=== PATIENT | female | born 1990 | race Caucasian/White ===

== ENCOUNTER 2017-05-22 21:36 | Emergency (ER) | payer MEDICAID ==
--- NOTE | 2017-05-22 22:07 | EDM.PDOC ---
ED HPI GENERAL MEDICAL PROBLEM - General Chief Complaint: ENT Problem Stated Complaint: PT HAS EAR INFECTION Time Seen by Provider: 05/22/17 22:04 - History of Present Illness INITIAL COMMENTS - FREE TEXT/NARRATIVE: HISTORY AND PHYSICAL: History of present illness: Patient is 27-year-old female presents with concern of right ear pain patient is currently and has no other complaints with no fever chills nausea vomiting is worse when she moves her pinna. Review of systems: As per history of present illness and below otherwise all systems reviewed and negative. Past medical history: As per history of present illness and as reviewed below otherwise noncontributory. Surgical history: As per history of present illness and as reviewed below otherwise noncontributory. Social history: No reported history of drug or alcohol abuse. Family history: As per history of present illness and as reviewed below otherwise noncontributory. Physical exam: HEENT: Atraumatic, normocephalic, pupils reactive, negative for conjunctival pallor or scleral icterus, mucous membranes moist, throat clear, neck supple, nontender, trachea midline. Right external auditory canal is inflamed with some erythema there is tenderness with movement there is no radha-auricular or other significant findings TM is normal Lungs: Clear to auscultation, breath sounds equal bilaterally, chest nontender. Heart: S1S2, regular, negative for clicks, rubs, or JVD. Abdomen: Soft, nondistended, nontender. Negative for masses or hepatosplenomegaly. Negative for costovertebral tenderness. Pelvis: Stable nontender. Genitourinary: Deferred. Rectal: Deferred. Extremities: Atraumatic, negative for cords or calf pain. Neurovascular unremarkable. Neuro: Awake, alert, oriented. Cranial nerves II through XII unremarkable. Cerebellum unremarkable. Motor and sensory unremarkable throughout. Exam nonfocal. Diagnostics: None Therapeutics: None Impression: #1 otitis externa #2 history of Definitive disposition and diagnosis as appropriate pending reevaluation and review of above. Right Ear Pain Score (Numeric/FACES): 6 - Related Data Allergies Allergy/AdvReac Type Severity Reaction Status Date / Time No Known Allergies Allergy Verified 05/22/17 21:47 Home Meds: Home Meds . [No Known Home Meds] 05/22/17 [History] Past Medical History - Past Health History Medical/Surgical History: Denies Medical/Surgical History Social & Family History - Family History Family Medical History: Noncontributory - Tobacco Use Smoking Status *Q: Never Smoker - Caffeine Use Caffeine Use: Reports: Energy Drinks, Soda - Recreational Drug Use Recreational Drug Use: No ED ROS GENERAL - Review of Systems Review Of Systems: ROS reveals no pertinent complaints other than HPI. ED EXAM, GENERAL - Physical Exam Exam: See Below (See dictation) Course - Vital Signs Last Recorded V/S: Last Vital Signs Temp 37.3 C 05/22/17 21:44 Pulse 88 05/22/17 21:44 Resp 18 05/22/17 21:44 BP 119/63 05/22/17 21:44 Pulse Ox 99 05/22/17 21:44 Departure - Departure Time of Disposition: 22:06 Disposition: Home, Self-Care 01 Condition: Good Clinical Impression: Otitis externa - Discharge Information Referrals: PCP,None [Primary Care Provider] - Additional Instructions: The following information is given to patients seen in the emergency department who are being discharged to home. This information is to outline your options for follow-up care. We provide all patients seen in our emergency department with a follow-up referral. The need for follow-up, as well as the timing and circumstances, are variable depending upon the specifics of your emergency department visit. If you don't have a primary care physician on staff, we will provide you with a referral. We always advise you to contact your personal physician following an emergency department visit to inform them of the circumstance of the visit and for follow-up with them and/or the need for any referrals to a consulting specialist. The emergency department will also refer you to a specialist when appropriate. This referral assures that you have the opportunity for followup care with a specialist. All of these measure are taken in an effort to provide you with optimal care, which includes your followup. Under all circumstances we always encourage you to contact your private physician who remains a resource for coordinating your care. When calling for followup care, please make the office aware that this follow-up is from your recent emergency room visit. If for any reason you are refused follow-up, please contact the emergency department at and asked to speak to the emergency department charge nurse. Cortisporin as prescribed follow-up primary medical doctor/JAVA APPLICATION ENGINEER he has discussed return as needed as discussed Tylenol as directed
== END 2017-05-22 22:45 | disposition home or self-care (01) ==
LOC: MW.ED 21:36
DX: O99.89 Other specified diseases and conditions complicating pregnancy, childbirth and the puerperium (principal); H60.91 Unspecified otitis externa, right ear
CPT/HCPCS: 99282

== ENCOUNTER 2017-06-13 18:28 | Emergency (ER) | payer MEDICAID ==
--- NOTE | 2017-06-13 19:51 | EDM.PDOC ---
ED HPI GENERAL MEDICAL PROBLEM - General Chief Complaint: ENT Problem Stated Complaint: DOUBLE EAR ACHE Time Seen by Provider: 06/13/17 19:35 Source of Information: Reports: Patient History Limitations: Reports: No Limitations - History of Present Illness INITIAL COMMENTS - FREE TEXT/NARRATIVE: HISTORY AND PHYSICAL: History of present illness: Patient is a 27-year-old female who presents to the emergency room today with complaints of bilateral ear pain 2-1/2 weeks. She states she was seen a week ago and given some external ear drops, although she is not sure what for. She is unsure if she was diagnosed with an ear infection at that time. She is currently 32 weeks and has had no OB related complications at this time. States that she routinely sees her GIS PHYSICAL SCIENTIST. She denies any fever, chills, shortness of breath, cough, chest pain. Review of systems: As per history of present illness and below otherwise all systems reviewed and negative. Past medical history: As per history of present illness and as reviewed below otherwise noncontributory. Surgical history: As per history of present illness and as reviewed below otherwise noncontributory. Social history: No reported history of drug or alcohol abuse. Family history: As per history of present illness and as reviewed below otherwise noncontributory. Physical exam: HEENT: Atraumatic, normocephalic, pupils reactive, negative for conjunctival pallor or scleral icterus, bilateral otitis media with effusion mucous membranes moist, throat clear, neck supple, nontender, trachea midline. Lungs: Clear to auscultation, breath sounds equal bilaterally, chest nontender. Heart: S1S2, regular rate and rhythm with no overt murmurs Abdomen: Soft, nondistended, nontender. Currently 32 weeks . Negative for masses or hepatosplenomegaly. Negative for costovertebral tenderness. Pelvis: Stable nontender. Genitourinary: Deferred. Rectal: Deferred. Extremities: Atraumatic, solid extremities per self, negative for cords or calf pain. Neurovascular unremarkable. Neuro: Awake, alert, oriented. Cranial nerves II through XII unremarkable. Cerebellum unremarkable. Motor and sensory unremarkable throughout. Exam nonfocal. Diagnostics: None Therapeutics: [] Impression: Bilateral otitis media with effusion Plan: Please take antibiotics as prescribed. Inform your GIS PHYSICAL SCIENTIST they were on this medication and that you have been diagnosed with an otitis media with effusion. Follow up with your primary caregiver in the next 1-2 days. Return to the ED as needed and as discussed. Definitive disposition and diagnosis as appropriate pending reevaluation and review of above. Duration: Week(s): both ears Pain Score (Numeric/FACES): 8 - Related Data Allergies Allergy/AdvReac Type Severity Reaction Status Date / Time No Known Allergies Allergy Verified 06/13/17 18:55 Home Meds: Home Meds #103/Iron Fumarate/Fa [ ] 1 tab PO DAILY 06/13/17 [ History] Past Medical History - Past Health History Medical/Surgical History: Denies Medical/Surgical History - Past Surgical History HEENT Surgical History: Reports: Tonsillectomy Social & Family History - Family History Family Medical History: Noncontributory - Tobacco Use Smoking Status *Q: Never Smoker - Caffeine Use Caffeine Use: Reports: None - Recreational Drug Use Recreational Drug Use: No ED ROS ENT - Review of Systems Review Of Systems: ROS reveals no pertinent complaints other than HPI. ED EXAM, ENT - Physical Exam Exam: See Below (See dictation) Course - Vital Signs Last Recorded V/S: Last Vital Signs Temp 98.5 F 06/13/17 18:55 Pulse 87 06/13/17 18:55 Resp 18 06/13/17 18:55 BP 113/76 06/13/17 18:55 Pulse Ox 99 06/13/17 18:55 Departure - Departure Time of Disposition: 19:51 Disposition: Home, Self-Care 01 Clinical Impression: Otitis media Qualifiers: Otitis media type: unspecified Chronicity: subacute Qualified Code(s): H66.90 - Otitis media, unspecified, unspecified ear - Discharge Information Referrals: PCP,None [Primary Care Provider] - Additional Instructions: My general discharge The following information is given to patients seen in the emergency department who are being discharged to home. This information is to outline your options for follow-up care. We provide all patients seen in our emergency department with a follow-up referral. The need for follow-up, as well as the timing and circumstances, are variable depending upon the specifics of your emergency department visit. If you don't have a primary care physician on staff, we will provide you with a referral. We always advise you to contact your personal physician following an emergency department visit to inform them of the circumstance of the visit and for follow-up with them and/or the need for any referrals to a consulting specialist. The emergency department will also refer you to a specialist when appropriate. This referral assures that you have the opportunity for follow-up care with a specialist. All of these measure are taken in an effort to provide you with optimal care, which includes your follow-up. Under all circumstances we always encourage you to contact your private physician who remains a resource for coordinating your care. When calling for follow-up care, please make the office aware that this follow-up is from your recent emergency room visit. If for any reason you are refused follow-up, please contact the [facility] Emergency Department at and asked to speak to the emergency department charge nurse. [facility] [address] [place] [id number] Please take antibiotics as prescribed. Inform your GIS PHYSICAL SCIENTIST they were on this medication and that you have been diagnosed with an otitis media with effusion. Follow up with your primary caregiver in the next 1-2 days. Return to the ED as needed and as discussed.
== END 2017-06-13 20:10 | disposition home or self-care (01) ==
LOC: MW.ED 18:28
DX: O99.89 Other specified diseases and conditions complicating pregnancy, childbirth and the puerperium (principal); H65.193 Other acute nonsuppurative otitis media, bilateral; Z3A.35 35 weeks gestation of pregnancy
CPT/HCPCS: 99282; 99283

== ENCOUNTER 2017-07-03 21:31 | Emergency (ER) | payer MEDICAID ==
[2017-07-03] MEDS ORDERED: Amoxicillin 500 MG Cap PO ONE (22:48)
[2017-07-03] MEDS ORDERED: Loratadine 10 MG Tab PO ONE (22:48)
--- NOTE | 2017-07-03 22:52 | EDM.PDOC ---
ED HPI GENERAL MEDICAL PROBLEM - General Chief Complaint: ENT Problem Stated Complaint: PAIN ON R SIDE OF FACE Time Seen by Provider: 07/03/17 22:50 Source of Information: Reports: Patient History Limitations: Reports: No Limitations - History of Present Illness INITIAL COMMENTS - FREE TEXT/NARRATIVE: History of present illness: [] Review of systems: As per history of present illness and below otherwise all systems reviewed and negative. Past medical history: As per history of present illness and as reviewed below otherwise noncontributory. Surgical history: As per history of present illness and as reviewed below otherwise noncontributory. Social history: No reported history of drug or alcohol abuse. Family history: As per history of present illness and as reviewed below otherwise noncontributory. Physical exam: HEENT: Atraumatic, normocephalic, pupils reactive, negative for conjunctival pallor or scleral icterus, mucous membranes moist mild oropharyngeal erythema without white patchy exudate otherwise throat is clear, neck supple, nontender, trachea midline. Bilateral TMs noted to be bulging but are pink pearly with good light reflex. Frontal and maxillary sinuses painful to palpation Lungs: Clear to auscultation, breath sounds equal bilaterally, chest nontender. Heart: S1S2, regular, negative for clicks, rubs, or JVD. Abdomen: Soft, nondistended, nontender. Negative for masses or hepatosplenomegaly. Negative for costovertebral tenderness. Pelvis: Stable nontender. Genitourinary: Deferred. Rectal: Deferred. Extremities: Atraumatic, negative for cords or calf pain. Neurovascular unremarkable. Neuro: Awake, alert, oriented. Cranial nerves II through XII unremarkable. Cerebellum unremarkable. Motor and sensory unremarkable throughout. Exam nonfocal. Diagnostics: [] Therapeutics: [] Impression: [Sinusitis] Plan: [Amoxicillin loratadine Rx for amoxicillin] Definitive disposition and diagnosis as appropriate pending reevaluation and review of above. right jaw Pain Score (Numeric/FACES): 9 - Related Data Allergies Allergy/AdvReac Type Severity Reaction Status Date / Time No Known Allergies Allergy Verified 07/03/17 22:47 Home Meds: Home Meds #103/Iron Fumarate/Fa [ ] 1 tab PO DAILY 06/13/17 [ History] Amoxicillin [IMW: Amoxicillin] 500 mg PO QID #40 cap 01/02/18 [Rx] Past Medical History - Past Health History Medical/Surgical History: Denies Medical/Surgical History HEENT History: Reports: None Cardiovascular History: Reports: None Respiratory History: Reports: None Gastrointestinal History: Reports: None Genitourinary History: Reports: None 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: Musculoskeletal History: Reports: None Neurological History: Reports: None Psychiatric History: Reports: None Endocrine/Metabolic History: Reports: None Hematologic History: Reports: None Immunologic History: Reports: None Oncologic (Cancer) History: Reports: None Dermatologic History: Reports: None - Infectious Disease History Infectious Disease History: Reports: None - Past Surgical History Head Surgeries/Procedures: Reports: None HEENT Surgical History: Reports: Tonsillectomy GI Surgical History: Reports: None Social & Family History - Family History Family Medical History: Noncontributory - Tobacco Use Smoking Status *Q: Never Smoker - Caffeine Use Caffeine Use: Reports: Energy Drinks, Soda - Recreational Drug Use Recreational Drug Use: No ED ROS GENERAL - Review of Systems Review Of Systems: See Below (See history of present illness) ED EXAM, GENERAL - Physical Exam Exam: See Below (See history of present illness) Course - Vital Signs Last Recorded V/S: Last Vital Signs Temp 37.1 C 07/03/17 22:48 Pulse 77 07/03/17 22:48 Resp 18 07/03/17 22:48 BP 119/77 07/03/17 22:48 Pulse Ox 98 07/03/17 22:48 - Orders/Labs/Meds Meds: Medications Discontinued Medications Generic Name Dose Route Start Last Admin Trade Name Sagarq PRN Reason Stop Dose Admin Amoxicillin 500 mg 07/03/17 22:48 Amoxil PO 07/03/17 22:49 ONETIME ONE Loratadine 10 mg 07/03/17 22:48 Claritin PO 07/03/17 22:49 ONETIME ONE Departure - Departure Time of Disposition: 22:51 Disposition: Home, Self-Care 01 Condition: Good Clinical Impression: Sinusitis - Discharge Information Prescriptions: Amoxicillin [IMW: Amoxicillin] 500 mg PO QID #40 cap Referrals: Geraldine Hernandez CNM [Primary Care Provider] - Additional Instructions: The following information is given to patients seen in the emergency department who are being discharged to home. This information is to outline your options for follow-up care. We provide all patients seen in our emergency department with a follow-up referral. The need for follow-up, as well as the timing and circumstances, are variable depending upon the specifics of your emergency department visit. If you don't have a primary care physician on staff, we will provide you with a referral. We always advise you to contact your personal physician following an emergency department visit to inform them of the circumstance of the visit and for follow-up with them and/or the need for any referrals to a consulting specialist. The emergency department will also refer you to a specialist when appropriate. This referral assures that you have the opportunity for follow-up care with a specialist. All of these measure are taken in an effort to provide you with optimal care, which includes your follow-up. Under all circumstances we always encourage you to contact your private physician who remains a resource for coordinating your care. When calling for follow-up care, please make the office aware that this follow-up is from your recent emergency room visit. If for any reason you are refused follow-up, please contact the [facility] Emergency Department at and asked to speak to the emergency department charge nurse. You may take Tylenol as discussed or other [id number] pain remedies that your OB has said you may have You're being given Claritin here today as well as an initial dose of amoxicillin also prescription for amoxicillin has been sent and the pharmacy for your sinusitis Please follow-up with your LOAD CHECKER and discuss further allergy and/or sinus medication error K with you having loratadine is okay for brief periods of time it is up to you to discuss any long-term plan with this medication Follow-up with ER as needed as discussed
== END 2017-07-03 23:01 | disposition home or self-care (01) ==
LOC: MW.ED 21:31
DX: O99.513 Diseases of the respiratory system complicating pregnancy, third trimester (principal); J32.9 Chronic sinusitis, unspecified; Z3A.00 Weeks of gestation of pregnancy not specified
CPT/HCPCS: 99282; A9270

== ENCOUNTER 2017-07-15 06:39 | Inpatient (IN) | payer MEDICAID ==
[2017-07-15] MEDS ORDERED: Sodium Chloride 0.9% 2.5 ML Syringe FLUSH PRN (21:49)
[2017-07-15] MEDS ORDERED: Misoprostol 200 MCG Tab PO PRN (21:49)
[2017-07-15] MEDS ORDERED: Carboprost Tromethamine 250 MCG/1 ML Amp IM PRN (21:49)
[2017-07-15] MEDS ORDERED: Lidocaine 1% 50 ML MDV INJECT PRN (21:49)
[2017-07-15] MEDS ORDERED: Butorphanol 1 MG/ML SDV IVPUSH PRN (21:49)
[2017-07-15] MEDS ORDERED: Methylergonovine 0.2 MG/1 ML Amp IM PRN (21:49)
[2017-07-15] MEDS ORDERED: Sodium Chloride 0.9% 10 ML Syringe FLUSH PRN (21:49)
[2017-07-15] MEDS ORDERED: Water For Irrigation,Sterile 1,000 ML Container IRR PRN (21:49)
[2017-07-15] MEDS ORDERED: Nalbuphine 10 MG/1 ML Vial IVPUSH PRN (21:49)
[2017-07-15] MEDS ORDERED: Oxytocin/0.9 % Sodium Chloride 30 UNIT/500 ML BAG IV SCH (22:00)
[2017-07-15] MEDS: Lactated Ringers 1,000 ML IV SCH ×3 (22:10→23:39)
--- NOTE | 2017-07-15 22:28 | PCM.LDHP ---
L&D History of Present Illness - General Date of Service: 07/15/17 Admit Problem/Dx: Patient Status Order with Admit Dx/Problem 07/15/17 21:49 Patient Status [ADT] Routine Admission Diagnosis/Problem Admission Diagnosis/Problem Source of Information: Patient History Limitations: Reports: No Limitations - History of Present Illness Pain Score: 10 Improves with: Reports: None Worsens with: Reports: None Associated Symptoms: Reports: N - Related Data Allergies/Adverse Reactions: Allergies Allergy/AdvReac Type Severity Reaction Status Date / Time No Known Allergies Allergy Verified 07/03/17 22:47 Home Medications: Home Meds #103/Iron Fumarate/Fa [ ] 1 tab PO DAILY 06/13/17 [ History] Amoxicillin [IMW: Amoxicillin] 500 mg PO QID #40 cap 07/03/17 [Rx] Past Medical History - Past Health History Medical/Surgical History: Denies Medical/Surgical History HEENT History: Reports: None Cardiovascular History: Reports: None Respiratory History: Reports: None Gastrointestinal History: Reports: None Genitourinary History: Reports: None RN 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: 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: Musculoskeletal History: Reports: None Neurological History: Reports: None Psychiatric History: Reports: None Endocrine/Metabolic History: Reports: None Hematologic History: Reports: None Immunologic History: Reports: None Oncologic (Cancer) History: Reports: None Dermatologic History: Reports: None - Infectious Disease History Infectious Disease History: Reports: None - Past Surgical History Head Surgeries/Procedures: Reports: None HEENT Surgical History: Reports: Tonsillectomy GI Surgical History: Reports: None Social & Family History - Family History Family Medical History: Noncontributory - Tobacco Use Smoking Status *Q: Never Smoker - Caffeine Use Caffeine Use: Reports: Energy Drinks, Soda - Recreational Drug Use Recreational Drug Use: No H&P Review of Systems - Review of Systems: Review Of Systems: See Below General: Reports: No Symptoms HEENT: Reports: No Symptoms Pulmonary: Reports: No Symptoms Cardiovascular: Reports: No Symptoms Gastrointestinal: Reports: No Symptoms Genitourinary: Reports: No Symptoms Musculoskeletal: Reports: No Symptoms Skin: Reports: No Symptoms Psychiatric: Reports: No Symptoms Neurological: Reports: No Symptoms Hematologic/Lymphatic: Reports: No Symptoms Immunologic: Reports: No Symptoms L&D Exam - Exam Exam: See Below - OB Specific Fundal Height In cm: 37 Contraction Intensity: Moderate to Strong Movement: Active Heart Tones: Present Presentation: Vertex - Loco Score Loco Score Cervix Position: Anterior Loco Score Consistency: Soft Loco Score Effacement: >80% Loco Score Dilation: 3-4 cm Loco Score 's Station: -2 Loco Score Total: 10 - Exam General: Alert, Oriented HEENT: PERRLA, Conjunctiva Clear, EACs Clear, EOMI, Hearing Intact, Mucosa Moist & [place], Nares Patent, Normal Nasal Septum, Posterior Pharynx Clear, TMs Clear Neck: Supple, Trachea Midline Lungs: Clear to Auscultation, Normal Respiratory Effort Cardiovascular: Regular Rate, Regular Rhythm GI/Abdominal Exam: Normal Bowel Sounds, Soft, Non-Tender, No Organomegaly, No Distention, No Abnormal Bruit, No Mass, Pelvis Stable Rectal Exam: Normal Exam, Normal Rectal Tone Genitourinary: Normal external exam, Normal bimanual exam, Normal speculum exam Back Exam: Normal Inspection, Full Range of Motion Extremities: Normal Inspection, Normal Range of Motion, Non-Tender, No Pedal Edema, Normal Capillary Refill Skin: Warm, Dry, Intact Neurological: Cranial Nerves Intact, Reflexes Equal Bilateral Psychiatric: Alert, Normal Affect, Normal Mood - Patient Data Lab Results Last 24 hrs: Laboratory Results - last 24 hr 07/15/17 Range/Units 22:05 WBC 12.38 H (4.0-11.0) K/uL RBC 3.47 L (4.30-5.90) M/uL Hgb 10.2 L (12.0-16.0) g/dL Hct 29.9 L (36.0-46.0) % MCV 86.2 (80.0-98.0) fL MCH 29.4 (27.0-32.0) pg MCHC 34.1 (31.0-37.0) g/dL RDW Std Deviation 42.5 (28.0-62.0) fl RDW Coeff of Himanshu 14 (11.0-15.0) % Plt Count 206 (150-400) K/uL MPV 13.00 H (7.40-12.00) fL Nucleated RBC % 0.0 /100WBC Nucleated RBCs # 0 K/uL Result Diagrams: 07/15/17 22:05 Problem List Initiated/Reviewed/Updated: Yes Orders Last 24hrs: Active Orders 24 hr Category Date Time Status Patient Status [ADT] Routine ADT 07/15/17 21:49 Active Heart Tones [RC] CONTINUOUS Care 07/15/17 21:49 Active Non Stress Test [RC] PER UNIT ROUTINE Care 07/15/17 21:49 Active May Shower [RC] ASDIRECTED Care 07/15/17 21:49 Active Notify Provider [RC] PRN Care 07/15/17 21:49 Active Up ad Rosy [RC] ASDIRECTED Care 07/15/17 21:49 Active Vaginal Exam [RC] PRN Care 07/15/17 21:49 Active Vital Signs [RC] PER UNIT ROUTINE Care 07/15/17 21:49 Active Clear Liquid Diet [DIET] Diet 07/16/17 Breakfast Active TYPE AND SCREEN [BBK] Routine Lab 07/15/17 22:05 Received Butorphanol [Stadol] Med 07/15/17 21:49 Active 1 mg IVPUSH Q1H PRN Carboprost Tromethamine [Hemabate DS] Med 07/15/17 21:49 Active 250 mcg IM ASDIRECTED PRN Lactated Ringers [Ringers, Lactated] 1,000 ml Med 07/15/17 22:00 Active IV ASDIRECTED Lidocaine 1% [Xylocaine 1%] Med 07/15/17 21:49 Active 50 ml INJECT .ONCE PRN Methylergonovine [Methergine] Med 07/15/17 21:49 Active 0.2 mg IM ASDIRECTED PRN Misoprostol [Cytotec] Med 07/15/17 21:49 Active 200 mcg PO .ONCE PRN Nalbuphine [Nubain] Med 07/15/17 21:49 Active 10 mg IVPUSH Q1H PRN Oxytocin/0.9 % Sodium Chloride [Oxytocin 30 Unit/500 ML Med 07/15/17 22:00 Active -NS] 30 unit in 500 ml IV TITRATE Sodium Chloride 0.9% [Saline Flush] Med 07/15/17 21:49 Active 10 ml FLUSH ASDIRECTED PRN Sodium Chloride 0.9% [Saline Flush] Med 07/15/17 21:49 Active 2.5 ml FLUSH ASDIRECTED PRN Water For Irrigation,Sterile [Sterile Water for Med 07/15/17 21:49 Active Irrigation] 1,000 ml IRR ASDIRECTED PRN Scalp Electrode [WOMSER] Per Unit Routine Oth 07/15/17 21:49 Ordered Peripheral IV Insertion Adult [OM.PC] Routine Oth 07/15/17 21:49 Ordered Resuscitation Status Routine Resus Stat 07/15/17 21:49 Ordered Medication Orders Butorphanol Tartrate (Stadol) 1 mg IVPUSH Q1H PRN PRN Reason: Pain Last Admin: 07/15/17 22:23 Dose: 1 mg Carboprost Tromethamine (Hemabate Ds) 250 mcg IM ASDIRECTED PRN PRN Reason: Post Hemorrhage Lactated Ringer's (Ringers, Lactated) 1,000 mls @ 150 mls/hr IV ASDIRECTED YAMIL Oxytocin/Sodium Chloride (Oxytocin 30 Unit/500 Ml-Ns) 30 unit in 500 mls @ 999 mls/hr IV TITRATE YAMIL Lidocaine HCl (Xylocaine 1%) 50 ml INJECT .ONCE PRN PRN Reason: Laceration repair Methylergonovine Maleate (Methergine) 0.2 mg IM ASDIRECTED PRN PRN Reason: Post Hemorrhage Misoprostol (Cytotec) 200 mcg PO .ONCE PRN PRN Reason: Post Hemorrhage Nalbuphine HCl (Nubain) 10 mg IVPUSH Q1H PRN PRN Reason: Pain (severe 7-10) Sodium Chloride (Saline Flush) 10 ml FLUSH ASDIRECTED PRN PRN Reason: Keep Vein Open Sodium Chloride (Saline Flush) 2.5 ml FLUSH ASDIRECTED PRN PRN Reason: Keep Vein Open Sterile Water (Sterile Water For Irrigation) 1,000 ml IRR ASDIRECTED PRN PRN Reason: delivery Assessment/Plan Comment:: tremorgnancy in active labor. Plan admit she may have epidural.
[2017-07-15] MEDS ORDERED: Ropivacaine 100 ML ONE (22:41)
[2017-07-15] MEDS ORDERED: fentaNYL 100 MCG/2 ML SDV ONE (22:41)
--- NOTE | 2017-07-15 23:16 | PCM.PREANE ---
Preanesthetic Assessment - Anesthesia/Transfusion/Family Hx Anesthesia History: Prior Anesthesia Without Reaction Family History of Anesthesia Reaction: No - Review of Systems General: No Symptoms Pulmonary: No Symptoms Cardiovascular: No Symptoms Gastrointestinal: No Symptoms Neurological: No Symptoms Other: Reports: None - Physical Assessment NPO Status Date: 07/15/17 NPO Status Time: 17:00 Height: 5 ft 5 in Weight: 158 lb ASA Class: 1 Mental Status: Alert & Oriented x3 Airway Class: Mallampati = 2 Dentition: Reports: Missing Tooth/Teeth Thyro-Mental Finger Breadths: 3 Mouth Opening Finger Breadths: 3 ROM/Head Extension: Full Lungs: Clear to Auscultation, Normal Respiratory Effort - Lab Values: Laboratory Last Values WBC 12.38 K/uL (4.0-11.0) H 07/15/17 22:05 RBC 3.47 M/uL (4.30-5.90) L 07/15/17 22:05 Hgb 10.2 g/dL (12.0-16.0) L 07/15/17 22:05 Hct 29.9 % (36.0-46.0) L 07/15/17 22:05 MCV 86.2 fL (80.0-98.0) 07/15/17 22:05 MCH 29.4 pg (27.0-32.0) 07/15/17 22:05 MCHC 34.1 g/dL (31.0-37.0) 07/15/17 22:05 RDW Std Deviation 42.5 fl (28.0-62.0) 07/15/17 22:05 RDW Coeff of Himanshu 14 % (11.0-15.0) 07/15/17 22:05 Plt Count 206 K/uL (150-400) 07/15/17 22:05 MPV 13.00 fL (7.40-12.00) H 07/15/17 22:05 Nucleated RBC % 0.0 /100WBC 07/15/17 22:05 Nucleated RBCs # 0 K/uL 07/15/17 22:05 - Allergies Allergies/Adverse Reactions: Allergies Allergy/AdvReac Type Severity Reaction Status Date / Time No Known Allergies Allergy Verified 07/03/17 22:47 - Acknowledgements Anesthesia Type Planned: Epidural Pt an Appropriate Candidate for the Planned Anesthesia: Yes Alternatives and Risks of Anesthesia Discussed w Pt/Guardian: Yes Pt/Guardian Understands and Agrees with Anesthesia Plan: Yes Additional Comments: VSS and baby reassuring. I obtained informed consent. Patient cooperated very well. PreAnesthesia Questionnaire - Past Health History Medical/Surgical History: Denies Medical/Surgical History HEENT History: Reports: None Cardiovascular History: Reports: None Respiratory History: Reports: None Gastrointestinal History: Reports: None Genitourinary History: Reports: None FINISHED [employer] EXAM[employer]ER History: Reports: Musculoskeletal History: Reports: None Neurological History: Reports: None Psychiatric History: Reports: None Endocrine/Metabolic History: Reports: None Hematologic History: Reports: None Immunologic History: Reports: None Oncologic (Cancer) History: Reports: None Dermatologic History: Reports: None - Infectious Disease History Infectious Disease History: Reports: None - Past Surgical History Head Surgeries/Procedures: Reports: None HEENT Surgical History: Reports: Tonsillectomy GI Surgical History: Reports: None - SUBSTANCE USE Smoking Status *Q: Never Smoker Recreational Drug Use History: No - HOME MEDS Home Medications: Home Meds #103/Iron Fumarate/Fa [ ] 1 tab PO DAILY 06/13/17 [ History] Amoxicillin [IMW: Amoxicillin] 500 mg PO QID #40 cap 07/03/17 [Rx] - CURRENT (IN HOUSE) MEDS Current Meds: Current Medications Butorphanol Tartrate (Stadol) 1 mg IVPUSH Q1H PRN PRN Reason: Pain Last Admin: 07/15/17 22:23 Dose: 1 mg Carboprost Tromethamine (Hemabate Ds) 250 mcg IM ASDIRECTED PRN PRN Reason: Post Hemorrhage Lactated Ringer's (Ringers, Lactated) 1,000 mls @ 150 mls/hr IV ASDIRECTED YAMIL Last Admin: 07/15/17 22:46 Dose: 150 mls/hr Oxytocin/Sodium Chloride (Oxytocin 30 Unit/500 Ml-Ns) 30 unit in 500 mls @ 999 mls/hr IV TITRATE YAMIL Lidocaine HCl (Xylocaine 1%) 50 ml INJECT .ONCE PRN PRN Reason: Laceration repair Methylergonovine Maleate (Methergine) 0.2 mg IM ASDIRECTED PRN PRN Reason: Post Hemorrhage Misoprostol (Cytotec) 200 mcg PO .ONCE PRN PRN Reason: Post Hemorrhage Nalbuphine HCl (Nubain) 10 mg IVPUSH Q1H PRN PRN Reason: Pain (severe 7-10) Sodium Chloride (Saline Flush) 10 ml FLUSH ASDIRECTED PRN PRN Reason: Keep Vein Open Sodium Chloride (Saline Flush) 2.5 ml FLUSH ASDIRECTED PRN PRN Reason: Keep Vein Open Sterile Water (Sterile Water For Irrigation) 1,000 ml IRR ASDIRECTED PRN PRN Reason: delivery Discontinued Medications Fentanyl (Sublimaze) Confirm Administered Dose 100 mcg .ROUTE .STK-MED ONE Stop: 07/15/17 22:42 Ropivacaine (Naropin 0.2%) Confirm Administered Dose 100 mls @ as directed .ROUTE .STK-MED ONE Stop: 07/15/17 22:42
[2017-07-16] MEDS: Lactated Ringers 1,000 ML IV SCH (04:51)
[2017-07-16] MEDS ORDERED: oxyCODONE 5 MG Tab PO PRN (06:50)
[2017-07-16] MEDS ORDERED: Benzocaine/Menthol 20%-0.5% Spray 78 GM Cannister TOP PRN (06:50)
[2017-07-16] MEDS ORDERED: Docusate Sodium 100 MG Cap PO PRN (06:50)
[2017-07-16] MEDS ORDERED: Witch Hazel Medicated Pads 40/Jar TOP PRN (06:50)
[2017-07-16] MEDS ORDERED: Ibuprofen 400 MG Tab PO PRN (06:50)
[2017-07-16] MEDS ORDERED: Acetaminophen 500 MG Tab PO PRN ×2 (06:50)
[2017-07-16] MEDS ORDERED: Lanolin 100% Cream 7 GM Tube TOP PRN (06:50)
[2017-07-16] MEDS ORDERED: Bisacodyl 10 MG Supp RECTAL PRN (06:50)
[2017-07-16] MEDS: Ibuprofen 800 MG Tab PO PRN ×2 (09:25→19:42)
--- NOTE | 2017-07-16 10:16 | PCM48HPAN ---
Post Anesthesia Note - EVALUATION WITHIN 48HRS OF ANESTHETIC Vital Signs in Normal Range: Yes Patient Participated in Evaluation: Yes Respiratory Function Stable: Yes Airway Patent: Yes Cardiovascular Function Stable: Yes Hydration Status Stable: Yes Pain Control Satisfactory: Yes Nausea and Vomiting Control Satisfactory: Yes Mental Status Recovered: Yes
--- NOTE | 2017-07-16 13:46 | OR ---
SURGEON: Prem Turner MD DATE OF PROCEDURE: 07/16/2017 Ms. Richard is a 27-year-old patient. She is primigravida. She is followed in the clinic. She started late in her care in this . She has started at 32 weeks, and she is mainly followed by our nurse elderly caregiver. She has no complication. Her GBS test was negative. She is admitted in active labor. At the time of the admission, she was 4 cm, complete vertex, -3, with bulging bag of water. She had epidural anesthesia for labor analgesia. The patient progressed nicely without any problem. She had artificial rupture of the membranes, and it shows to be meconium stain. The patient continued to progress, she became complete, complete, and she accomplished normal spontaneous vaginal delivery of male fetus, cried immediately, and suctioned on the perineum, and after suctioning on the perineum, the baby cried immediately. There was a small midline laceration, and the placenta was delivered spontaneous, complete, and intact. The laceration was repaired with 3-0 Vicryl in layer without any problem. heart rate was category 1, except when the patient was complete and pushing, there was some variable deceleration and was category 2. Estimated blood loss is 250-300 mL in this . There was no complication. FABIAN / ARLETTE /[id number]
[2017-07-17] MEDS: Ibuprofen 800 MG Tab PO PRN ×2 (05:30→13:12)
[2017-07-17] MEDS ORDERED: Measles, Mumps & Rubella Vaccine 0.5 ML SDV SUBCUT ONE (09:02)
--- NOTE | 2017-07-17 10:47 | PCM.DCSUM1 ---
Discharge Summary - Discharge Data Discharge Date: 07/17/17 Discharge Disposition: Home, Self-Care 01 Condition: Good - Patient Instructions Diet: Usual Diet as Tolerated Activity: As Tolerated Driving: Do Not Drive Showering/Bathing: October Shower Notify Provider of: Fever, Increased Pain, Nausea and/or Vomiting - Discharge Plan Home Medications: Home Meds #103/Iron Fumarate/Fa [ ] 1 tab PO DAILY 06/13/17 [ History] Amoxicillin [IMW: Amoxicillin] 500 mg PO QID #40 cap 07/03/17 [Rx] Patient Handouts: Vaginal Delivery, Care After Referrals: [facility] [Outside] HernandezGeraldine mclaughlin CNM [Mid-] - 08/27/17 3:00 pm - General Info Date of Service: 07/17/17 Functional Status: Reports: Pain Controlled - Review of Systems General: Reports: No Symptoms HEENT: Reports: No Symptoms Pulmonary: Reports: No Symptoms Cardiovascular: Reports: No Symptoms Gastrointestinal: Reports: No Symptoms Genitourinary: Reports: No Symptoms Musculoskeletal: Reports: No Symptoms Skin: Reports: No Symptoms Neurological: Reports: No Symptoms Psychiatric: Reports: No Symptoms - Patient Data Vitals - Most Recent: Last Vital Signs Temp 36.9 C 07/17/17 07:15 Pulse 91 07/17/17 07:15 Resp 18 07/17/17 07:15 BP 102/66 07/17/17 07:15 Pulse Ox 99 07/17/17 07:15 Weight - Most Recent: 71.668 kg Lab Results - Last 24 hrs: Laboratory Results - last 24 hr 07/17/17 Range/Units 05:16 Hgb 8.5 L (12.0-16.0) g/dL Hct 25.6 L (36.0-46.0) % Med Orders - Current: Current Medications Acetaminophen (Tylenol Extra Strength) 500 mg PO Q4H PRN PRN Reason: Pain Acetaminophen (Tylenol Extra Strength) 1,000 mg PO Q4H PRN PRN Reason: Pain Benzocaine/Menthol (Dermoplast Pain Relief 20%-0.5% [place]) 78 gm TOP ASDIRECTED PRN PRN Reason: Perineal Comfort Measure Bisacodyl (Dulcolax) 10 mg RECTAL .ONCE PRN PRN Reason: Constipation Butorphanol Tartrate (Stadol) 1 mg IVPUSH Q1H PRN PRN Reason: Pain Last Admin: 07/15/17 22:23 Dose: 1 mg Carboprost Tromethamine (Hemabate Ds) 250 mcg IM ASDIRECTED PRN PRN Reason: Post Hemorrhage Docusate Sodium (Colace) 100 mg PO BID PRN PRN Reason: Constipation Last Admin: 07/16/17 19:41 Dose: 100 mg Emollient Ointment (Lansinoh Hpa) 0 gm TOP ASDIRECTED PRN PRN Reason: Sore Nipples Lactated Ringer's (Ringers, Lactated) 1,000 mls @ 150 mls/hr IV ASDIRECTED YAMIL Last Admin: 07/16/17 04:51 Dose: 150 mls/hr Oxytocin/Sodium Chloride (Oxytocin 30 Unit/500 Ml-Ns) 30 unit in 500 mls @ 999 mls/hr IV TITRATE [facility] Last Admin: 07/16/17 06:39 Dose: 999 mls/hr Ibuprofen (Motrin) 400 mg PO Q4H PRN PRN Reason: Pain Ibuprofen (Motrin) 800 mg PO Q6H PRN PRN Reason: Pain Last Admin: 07/17/17 05:30 Dose: 800 mg Lidocaine HCl (Xylocaine 1%) 50 ml INJECT .ONCE PRN PRN Reason: Laceration repair Methylergonovine Maleate (Methergine) 0.2 mg IM ASDIRECTED PRN PRN Reason: Post Hemorrhage Misoprostol (Cytotec) 200 mcg PO .ONCE PRN PRN Reason: Post Hemorrhage Nalbuphine HCl (Nubain) 10 mg IVPUSH Q1H PRN PRN Reason: Pain (severe 7-10) Oxycodone HCl (Oxycodone) 5 mg PO Q2H PRN PRN Reason: Pain Sodium Chloride (Saline Flush) 10 ml FLUSH ASDIRECTED PRN PRN Reason: Keep Vein Open Sodium Chloride (Saline Flush) 2.5 ml FLUSH ASDIRECTED PRN PRN Reason: Keep Vein Open Sterile Water (Sterile Water For Irrigation) 1,000 ml IRR ASDIRECTED PRN PRN Reason: delivery Witch Christine (Tucks) 1 pad TOP ASDIRECTED PRN PRN Reason: comfort care Discontinued Medications Fentanyl (Sublimaze) Confirm Administered Dose 100 mcg .ROUTE .STK-MED ONE Stop: 07/15/17 22:42 Ropivacaine (Naropin 0.2%) Confirm Administered Dose 100 mls @ as directed .ROUTE .STK-MED ONE Stop: 07/15/17 22:42 Measles/Mumps/Rubella Vaccine Live (M-M-R Ii Vaccine) 0.5 ml SUBCUT .ONCE ONE Stop: 07/17/17 09:03 - Exam General: Reports: Alert, Oriented HEENT: Reports: Pupils Equal, Pupils Reactive, EOMI, Mucous Membr. Moist/[place] Neck: Reports: Supple Lungs: Reports: Clear to Auscultation, Normal Respiratory Effort Cardiovascular: Reports: Regular Rate, Regular Rhythm GI/Abdominal Exam: Normal Bowel Sounds, Soft, Non-Tender, No Organomegaly, No Distention, No Abnormal Bruit, No Mass, Pelvis Stable (Female) Exam: Normal External Exam, Normal Speculum Exam, Normal Bimanual Exam Rectal (Female) Exam: Normal Exam, Normal Rectal Tone Back Exam: Reports: Normal Inspection, Full Range of Motion Extremities: Normal Inspection, Normal Range of Motion, Non-Tender, No Pedal Edema, Normal Capillary Refill Skin: Reports: Warm, Dry, Intact Wound/Incisions: Reports: Healing Well Neurological: Reports: No New Focal Deficit Psy/Mental Status: Reports: Alert, Normal Affect, Normal Mood *Q Meaningful Use (DIS) - VTE *Q VTE Criteria *Q: - Stroke *Q Stroke Criteria *Q: - AMI *Q AMI Criteria *Q:
== END 2017-07-17 15:30 | disposition home or self-care (01) | DRG 775 ==
LOC: MW.OB 06:39 → OBSVTOIN 07-16 06:39 → MW.OB 07-16 09:37
PROVIDERS: ADMIT Obstetrics & Gynecology; ATTEND Obstetrics & Gynecology
PROC: 10E0XZZ Delivery of Products of Conception, External Approach (ICD-10-PCS; principal; 2017-07-16)
PROC: 0HQ9XZZ Repair Perineum Skin, External Approach (ICD-10-PCS; 2017-07-16)
PROC: 10907ZC Drainage of Amniotic Fluid, Therapeutic from Products of Conception, Via Natural or Artificial Opening (ICD-10-PCS; 2017-07-16)
DX: O70.0 First degree perineal laceration during delivery (principal); O09.33 Supervision of pregnancy with insufficient antenatal care, third trimester; Z3A.39 39 weeks gestation of pregnancy; Z37.0 Single live birth
CPT/HCPCS: 36415; 59025; 59409; 85014; 85018; 85027; 86850; 86900; 86901; A9270-GY; J0595; J2590; J2795; J3010; J7120

== ENCOUNTER 2021-12-02 16:55 | Emergency (ER) | payer BC | END 2021-12-02 19:39 | disposition home or self-care (01) | LOC: MW.ED 16:55 | DX: S99.912A Unspecified injury of left ankle, initial encounter (principal); X50.1XXA Overexertion from prolonged static or awkward postures, initial encounter | CPT/HCPCS: 73610-26-LT; 73610-LT; 99282; 99283 ==

== ENCOUNTER 2022-08-22 13:34 | Inpatient (IN) | payer MEDICAID ==
[2022-08-22] MEDS ORDERED: Butorphanol 1 MG/ML SDV IVPUSH PRN (14:28)
[2022-08-22] MEDS ORDERED: Misoprostol 200 MCG Tab PO PRN (14:28)
[2022-08-22] MEDS ORDERED: Tranexamic Acid 1,000 MG in Sodium Chloride 0.9% 100 ML IV PRN (14:28)
[2022-08-22] MEDS ORDERED: Methylergonovine 0.2 MG/1 ML Amp IM PRN (14:28)
[2022-08-22] MEDS ORDERED: Misoprostol 25 MCG (1/4 of 100 MCG) Tab VAG PRN ×2 (14:28)
[2022-08-22] MEDS ORDERED: Terbutaline 1 MG/ML SDV SUBCUT PRN (14:28)
[2022-08-22] MEDS ORDERED: Carboprost Tromethamine 250 MCG/1 ML Amp IM PRN (14:28)
[2022-08-22] MEDS ORDERED: Lidocaine 1% 50 ML MDV INJECT PRN (14:28)
[2022-08-22] MEDS ORDERED: Sodium Chloride 0.9% 10 ML Syringe FLUSH PRN (14:28)
[2022-08-22] MEDS ORDERED: Sodium Chloride 0.9% 2.5 ML Syringe FLUSH PRN (14:28)
[2022-08-22] MEDS ORDERED: Water For Irrigation,Sterile 1,000 ML Container IRR PRN (14:28)
[2022-08-22] MEDS ORDERED: Sodium Chloride 0.9% 20 ML SDV IV PRN (14:28)
[2022-08-22] MEDS ORDERED: Oxytocin/0.9 % Sodium Chloride 30 UNIT/500 ML BAG IV SCH ×2 (14:30)
[2022-08-22] MEDS ORDERED: Misoprostol 25 MCG (1/4 of 100 MCG) Tab PO ONE (14:32)
[2022-08-22] MEDS ORDERED: Misoprostol 25 MCG (1/4 of 100 MCG) Tab PO PRN ×2 (19:04→19:35)
[2022-08-23] MEDS: Lactated Ringers 1,000 ML IV SCH ×3 (00:27→03:32)
[2022-08-23] MEDS ORDERED: Ropivacaine 0.2% PF 2 MG/ML 20 ML SDV ONE (01:24)
[2022-08-23] MEDS ORDERED: Ropivacaine/PF 400 MG/200 ML PCA ONE (01:24)
[2022-08-23] MEDS ORDERED: ePHEDrine 50 MG/ML SDV IVPUSH PRN (01:37)
[2022-08-23] MEDS ORDERED: Phenylephrine HCl In 0.9% NaCl 1 MG/10 ML Vial IVPUSH PRN (01:37)
[2022-08-23] MEDS ORDERED: Phenylephrine HCl In 0.9% NaCl 1 MG/10 ML Vial ONE (01:42)
[2022-08-23] MEDS ORDERED: Ropivacaine HCl/PF 400 MG in Premix Bag 1 BAG EPIDUR SCH (01:45)
[2022-08-23] MEDS ORDERED: ePHEDrine 50 MG/ML SDV ONE (01:48)
[2022-08-23] MEDS ORDERED: Dexmedetomidine 200 MCG/2 ML SDV ONE (01:48)
[2022-08-23] MEDS ORDERED: Lanolin 100% Cream 7 GM Tube TOP PRN (03:56)
[2022-08-23] MEDS ORDERED: Acetaminophen 500 MG Tab PO PRN (03:56)
[2022-08-23] MEDS ORDERED: Ibuprofen 400 MG Tab PO PRN (03:56)
[2022-08-23] MEDS ORDERED: Witch Hazel Medicated Pads 40/Jar TOP PRN (03:56)
[2022-08-23] MEDS ORDERED: Bisacodyl 10 MG Supp RECTAL PRN (03:56)
[2022-08-23] MEDS ORDERED: Benzocaine/Menthol 20%-0.5% Spray 78 GM Cannister TOP PRN (03:56)
[2022-08-23] MEDS: Acetaminophen 500 MG Tab PO PRN ×3 (05:26→20:20)
[2022-08-23] MEDS: Ibuprofen 800 MG Tab PO PRN ×3 (05:27→20:19)
[2022-08-23] MEDS: Docusate Sodium 100 MG Cap PO PRN ×2 (09:45→20:19)
[2022-08-23] MEDS ORDERED: Cyclobenzaprine 10 MG Tab PO ONE (13:15)
[2022-08-23] MEDS: Cyclobenzaprine 10 MG Tab PO PRN (22:33)
[2022-08-24] MEDS: Ibuprofen 800 MG Tab PO PRN (06:27)
[2022-08-24] MEDS: Cyclobenzaprine 10 MG Tab PO PRN (06:30)
[2022-08-24] MEDS: Acetaminophen 500 MG Tab PO PRN (10:48)
== END 2022-08-24 11:29 | disposition home or self-care (01) | DRG 807 ==
LOC: MW.OBCHECK 13:34 → MW.OB 13:35 → MW.OBCHECK 14:27 → MW.OB 14:28 → INTOOBSV 08-23 03:56 → OBSVTOIN 08-23 03:56 → MW.OB 08-23 07:00
PROVIDERS: ADMIT Obstetrics & Gynecology Obstetrics; ATTEND Obstetrics & Gynecology Obstetrics
PROC: 10E0XZZ Delivery of Products of Conception, External Approach (ICD-10-PCS; principal; 2022-08-23)
PROC: 3E0R3BZ Introduction of Anesthetic Agent into Spinal Canal, Percutaneous Approach (ICD-10-PCS; 2022-08-23)
PROC: 00HU33Z Insertion of Infusion Device into Spinal Canal, Percutaneous Approach (ICD-10-PCS; 2022-08-23)
DX: O99.02 Anemia complicating childbirth (principal); Z37.0 Single live birth; D64.9 Anemia, unspecified; O69.81X0 Labor and delivery complicated by cord around neck, without compression, not applicable or unspecified; O99.62 Diseases of the digestive system complicating childbirth; K21.9 Gastro-esophageal reflux disease without esophagitis; Z20.822 Contact with and (suspected) exposure to COVID-19; Z3A.39 39 weeks gestation of pregnancy
CPT/HCPCS: 01967; 36415; 51702; 59025; 59409; 80305-QW; 85014; 85018; 85027; 86592; 86850; 86900; 86901; 93005; A9270-GY; J2590; J2795; J3490; J7120; U0002

== ENCOUNTER 2022-09-02 20:07 | Emergency (ER) | payer MEDICAID ==
[2022-09-02] MEDS ORDERED: Sodium Chloride 0.9% 2.5 ML Syringe FLUSH PRN (20:39)
[2022-09-02] MEDS ORDERED: Sodium Chloride 0.9% 10 ML Syringe FLUSH PRN (20:39)
[2022-09-02] MEDS ORDERED: Ketorolac 30 MG/ML SDV IVPUSH ONE (20:40)
[2022-09-02] MEDS ORDERED: Metoclopramide 10 MG/2 ML SDV IVPUSH ONE (20:40)
[2022-09-02] MEDS ORDERED: Iopamidol 755 MG/ML 500 ML Multipack Bottle IVPUSH ONE (21:13)
[2022-09-02 21:26] LABS: CARBON DIOXIDE,CO2 25.2 mmol/L (21.0-32.0); POTASSIUM,K 3.6 mmol/L (3.5-5.1)
== END 2022-09-02 23:21 | disposition home or self-care (01) ==
LOC: MW.ED 20:07
DX: H49.21 Sixth [abducent] nerve palsy, right eye (principal); R51.9 Headache, unspecified
CPT/HCPCS: 36415; 70470; 80053; 84443; 85025; 96374; 96375; 99284; J1885; J2765; J3360; J3490; Q9967

== ENCOUNTER 2023-06-05 11:51 | Emergency (ER) | payer MEDICAID, OTHER ==
[2023-06-05] MEDS ORDERED: Ondansetron 4 MG/2 ML SDV IVPUSH ONE (12:19)
[2023-06-05] MEDS ORDERED: Ketorolac 30 MG/ML SDV IVPUSH ONE (12:19)
[2023-06-05] MEDS ORDERED: Sodium Chloride 0.9% 1,000 ML IV ONE (12:19)
[2023-06-05 13:29] LABS: BASOPHILS ABSOLUTE AUTO 0.02 K/uL (0.00-0.20); BASOPHILS PERCENT AUTO 0.3 % (0.0-1.0); EOSINOPHILS ABSOLUTE AUTO 0.08 K/uL (0.00-0.45); EOSINOPHILS PERCENT AUTO 1.3 % (0.0-6.0); HEMATOCRIT 35.7 % (37.0-47.0); HEMOGLOBIN 12.8 g/dL (12.0-16.0); IMMATURE GRAN ABSOLUTE AUTO 0.03 K/uL (0.00-0.05); IMMATURE GRAN PERCENT AUTO 0.5 % (0.0-0.4); LYMPHOCYTES ABSOLUTE AUTO 1.29 K/uL (1.00-4.80); MEAN CORPUSCULAR HGB CONC 35.9 g/dL (32.0-36.0); MEAN CORPUSCULAR VOLUME 83.8 fL (83.0-99.0); MEAN PLATELET VOLUME 11.9 fL (9.4-12.3); MONOCYTES PERCENT AUTO 9.8 % (0.0-8.0); NEUTROPHILS ABSOLUTE AUTO 4.11 K/uL (1.80-7.70); NEUTROPHILS PERCENT AUTO 67.1 % (41.0-71.0); PLATELET COUNT,PLT 227 K/uL (150-400); RED BLOOD CELL COUNT 4.26 M/uL (4.10-5.30); WHITE BLOOD CELL COUNT,WBC 6.13 K/uL (3.9-11.3)
[2023-06-05 13:56] LABS: CORONAVIRUS COVID-19 NAA NEGATIVE (NEGATIVE); INFLUENZA A NAA NEGATIVE (NEGATIVE); INFLUENZA B NAA NEGATIVE (NEGATIVE)
[2023-06-05 14:09] LABS: APPEARANCE,URINE SLT CLOUDY; BILIRUBIN,URINE NEGATIVE (NEGATIVE); GLUCOSE,URINE NEGATIVE (NEGATIVE); KETONES,URINE NEGATIVE (NEGATIVE); LEUKOCYTE ESTERASE,URINE NEGATIVE (NEGATIVE); NITRITE,URINE NEGATIVE (NEGATIVE); OCCULT BLOOD,URINE NEGATIVE (NEGATIVE); PROTEIN,URINE NEGATIVE (NEGATIVE)
[2023-06-05 14:13] LABS: COLOR,URINE DARK YELLOW
[2023-06-05 14:17] LABS: LACTIC ACID 0.8 mmol/L (0.4-2.0)
[2023-06-05 14:25] LABS: ALBUMIN 3.3 g/dL (3.4-5.0); BILIRUBIN TOTAL 0.6 mg/dL (0.2-1.0); CALCIUM 8.6 mg/dL (8.5-10.1); CARBON DIOXIDE,CO2 22.3 mmol/L (21.0-32.0); CREATININE 0.6 mg/dL (0.6-1.0); EST CRCL DRUG DOSING (CG) 118.88 mL/min; MAGNESIUM 1.8 mg/dL (1.8-2.4); POTASSIUM,K 3.8 mmol/L (3.5-5.1); PROTEIN TOTAL,TP 6.5 g/dL (6.4-8.2)
== END 2023-06-05 18:35 | disposition home or self-care (01) ==
LOC: MW.ED 11:51
DX: O26.891 Other specified pregnancy related conditions, first trimester (principal); R10.32 Left lower quadrant pain; Z20.822 Contact with and (suspected) exposure to COVID-19; Z3A.09 9 weeks gestation of pregnancy
CPT/HCPCS: 0240U; 36415; 76817; 80053; 81003; 83605; 83690; 83735; 84702; 84703; 85025; 96361; 96374; 96375; 99284; J1885; J2405; J7030

== ENCOUNTER 2023-12-27 00:18 | Inpatient (IN) | payer BC, MEDICAID ==
[2023-12-27] MEDS ORDERED: Carboprost Tromethamine 250 MCG/1 mL Vial IM PRN (00:30)
[2023-12-27] MEDS ORDERED: Tranexamic Acid IN NACL,ISO-OS 1,000 MG in Premix Bag 1 BAG IV PRN (00:30)
[2023-12-27] MEDS ORDERED: Ondansetron 4 MG/2 ML SDV IVPUSH PRN (00:30)
[2023-12-27] MEDS ORDERED: Sodium Chloride 0.9% 10 ML Syringe FLUSH PRN (00:30)
[2023-12-27] MEDS ORDERED: Lidocaine 1% 50 ML MDV INJECT PRN (00:30)
[2023-12-27] MEDS ORDERED: Sodium Chloride 0.9% 2.5 ML Syringe FLUSH PRN (00:30)
[2023-12-27] MEDS ORDERED: Water For Irrigation,Sterile 1,000 ML Container IRR PRN (00:30)
[2023-12-27] MEDS ORDERED: Oxytocin/0.9 % Sodium Chloride 30 UNIT/500 ML BAG IV SCH ×2 (00:30)
[2023-12-27] MEDS ORDERED: Nalbuphine 10 MG/1 ML Vial IVPUSH PRN (00:30)
[2023-12-27] MEDS ORDERED: Misoprostol 200 MCG Tab PO PRN (00:30)
[2023-12-27] MEDS ORDERED: Methylergonovine 0.2 MG/1 ML Amp IM PRN (00:30)
[2023-12-27] MEDS ORDERED: Sodium Chloride 0.9% 20 ML SDV IV PRN (00:30)
[2023-12-27] MEDS ORDERED: Misoprostol 25 MCG (1/4 of 100 MCG) Tab VAG PRN ×2 (01:00→05:00)
[2023-12-27] MEDS ORDERED: Misoprostol 25 MCG (1/4 of 100 MCG) Tab PO SCH (01:00)
[2023-12-27 01:42] LABS: HEMATOCRIT 26.5 % (37.0-47.0); HEMOGLOBIN 8.8 g/dL (12.0-16.0); MEAN CORPUSCULAR HEMOGLOBIN 27.1 pg (28.0-32.0); MEAN CORPUSCULAR HGB CONC 33.2 g/dL (32.0-36.0); MEAN CORPUSCULAR VOLUME 81.5 fL (83.0-99.0); MEAN PLATELET VOLUME 13.6 fL (9.4-12.3); PLATELET COUNT,PLT 194 K/uL (150-400); RED BLOOD CELL COUNT 3.25 M/uL (4.10-5.30); WHITE BLOOD CELL COUNT,WBC 9.11 K/uL (3.9-11.3)
[2023-12-27] MEDS: Misoprostol 50 MCG (1/2 of 100 MCG) Tab VAG ONE (01:59)
[2023-12-27] MEDS: Lactated Ringers 1,000 ML IV SCH (06:16)
[2023-12-27] MEDS: Ropivacaine HCl/PF 400 MG in Premix Bag 1 BAG EPIDUR SCH (07:28)
[2023-12-27] MEDS ORDERED: dexmedeTOMIDine HCl 200 MCG/2 ML SDV EPIDUR ONE (07:29)
[2023-12-27] MEDS: Phenylephrine HCl In 0.9% NaCl 1 MG/10 ML Syringe IVPUSH PRN (07:37)
[2023-12-27] MEDS ORDERED: ePHEDrine 50 MG/ML SDV IVPUSH PRN ×2 (07:52)
[2023-12-27] MEDS ORDERED: dexmedeTOMIDine HCl 200 MCG/2 ML SDV EPIDUR SCH (08:00)
[2023-12-27] MEDS: Terbutaline 1 MG/ML SDV SUBCUT PRN (08:11)
[2023-12-27] MEDS ORDERED: Lanolin 100% Cream 7 GM Tube TOP PRN (12:16)
[2023-12-27] MEDS ORDERED: Benzocaine/Menthol 20%-0.5% Spray 78 GM Cannister TOP PRN (12:16)
[2023-12-27] MEDS ORDERED: Sennosides 8.6 MG Tab PO PRN (12:16)
[2023-12-27] MEDS ORDERED: Witch Hazel Medicated Pads 40/Jar TOP PRN (12:16)
[2023-12-27] MEDS: Sodium Ferric Gluconate Cmplex 125 MG in Sodium Chloride 0.9% 100 ML IV SCH (13:26)
[2023-12-27] MEDS: Ibuprofen 800 MG Tab PO PRN (15:39)
[2023-12-27 18:30] LABS: PH,UMBILICAL ARTERIAL 7.218 (7.18-7.38); PH,UMBILICAL VENOUS 7.191 (7.25-7.45)
[2023-12-27] MEDS: Acetaminophen 500 MG Tab PO PRN (19:53)
[2023-12-28 06:00] LABS: HEMATOCRIT 24.2 % (37.0-47.0); HEMOGLOBIN 8.1 g/dL (12.0-16.0)
[2023-12-28] MEDS: Phenylephrine HCl In 0.9% NaCl 1 MG/10 ML Syringe ONE (09:13)
[2023-12-28] MEDS: dexmedeTOMIDine HCl 200 MCG/2 ML SDV ONE (09:14)
[2023-12-28] MEDS: Bupivacaine 0.25% 10 ML SDV ONE (09:15)
[2023-12-28] MEDS: Ropivacaine HCl/PF 200 ML ONE (09:15)
[2023-12-28] MEDS: Ferrous Sulfate 325 MG Tab PO SCH (11:01)
[2023-12-28] MEDS: Sennosides 8.6 MG Tab PO SCH (11:05)
== END 2023-12-28 13:50 | disposition home or self-care (01) | DRG 560 ==
LOC: MW.OB 00:18 → OBSVTOIN 11:39 → MW.OB 11:39
PROVIDERS: ADMIT Obstetrics & Gynecology; ATTEND Obstetrics & Gynecology
PROC: 10E0XZZ Delivery of Products of Conception, External Approach (ICD-10-PCS; principal; 2023-12-27)
PROC: 3E0R3BZ Introduction of Anesthetic Agent into Spinal Canal, Percutaneous Approach (ICD-10-PCS; 2023-12-27)
PROC: 00HU33Z Insertion of Infusion Device into Spinal Canal, Percutaneous Approach (ICD-10-PCS; 2023-12-27)
DX: O99.02 Anemia complicating childbirth (principal); Z3A.39 39 weeks gestation of pregnancy; Z37.0 Single live birth; D64.89 Other specified anemias
CPT/HCPCS: 36415; 51702; 59025; 59409; 82803; 85014; 85018; 85027; 86592; 86850; 86900; 86901; A9270-GY; J2371; J2795; J2916; J3105; J3490; J7120

== ENCOUNTER 2024-01-22 14:15 | Emergency (ER) | payer BC, MEDICAID ==
[2024-01-22 14:31] LABS: BASOPHILS ABSOLUTE AUTO 0.03 K/uL (0.00-0.20); BASOPHILS PERCENT AUTO 0.4 % (0.0-1.0); EOSINOPHILS ABSOLUTE AUTO 0.28 K/uL (0.00-0.45); EOSINOPHILS PERCENT AUTO 3.6 % (0.0-6.0); HEMATOCRIT 37.3 % (37.0-47.0); HEMOGLOBIN 12.3 g/dL (12.0-16.0); IMMATURE GRAN ABSOLUTE AUTO 0.03 K/uL (0.00-0.05); IMMATURE GRAN PERCENT AUTO 0.4 % (0.0-0.4); LYMPHOCYTES ABSOLUTE AUTO 2.01 K/uL (1.00-4.80); LYMPHOCYTES PERCENT AUTO 25.6 % (24.0-44.0); MEAN CORPUSCULAR HEMOGLOBIN 27.2 pg (28.0-32.0); MEAN CORPUSCULAR VOLUME 82.5 fL (83.0-99.0); MEAN PLATELET VOLUME 11.8 fL (9.4-12.3); MONOCYTES ABSOLUTE AUTO 0.68 K/uL (0.00-0.80); MONOCYTES PERCENT AUTO 8.7 % (0.0-8.0); NEUTROPHILS ABSOLUTE AUTO 4.83 K/uL (1.80-7.70); NEUTROPHILS PERCENT AUTO 61.3 % (41.0-71.0); PLATELET COUNT,PLT 239 K/uL (150-400); RED BLOOD CELL COUNT 4.52 M/uL (4.10-5.30); WHITE BLOOD CELL COUNT,WBC 7.86 K/uL (3.9-11.3)
[2024-01-22] MEDS: Sodium Chloride 0.9% 1,000 ML IV ONE (14:33)
[2024-01-22 15:11] LABS: ALANINE AMINOTRANSFERASE,ALT 34 IU/L (14-63); ALBUMIN 3.5 g/dL (3.4-5.0); ALKALINE PHOSPHATASE 143 U/L (46-116); ASPARTATE AMNIOTRANSFERASE,AST 14 IU/L (15-37); BILIRUBIN TOTAL 0.5 mg/dL (0.2-1.0); BLOOD UREA NITROGEN,BUN 10 mg/dL (7.0-18.0); CARBON DIOXIDE,CO2 27.2 mmol/L (21.0-32.0); CHLORIDE,CL 106 mmol/L (98-107); CREATININE 0.8 mg/dL (0.6-1.0); EST CRCL DRUG DOSING (CG) 89.16 mL/min; GLUCOSE RANDOM 80 mg/dL (74-106); POTASSIUM,K 4.1 mmol/L (3.5-5.1); PROTEIN TOTAL,TP 6.9 g/dL (6.4-8.2); SODIUM,NA 141 mmol/L (136-145)
[2024-01-22 15:21] LABS: ESTIMATED GFR 99 mL/min (>60)
[2024-01-22 15:22] LABS: CORONAVIRUS COVID-19 NAA NEGATIVE (NEGATIVE); INFLUENZA A NAA NEGATIVE (NEGATIVE); INFLUENZA B NAA NEGATIVE (NEGATIVE)
[2024-01-22] MEDS: Iopamidol 755 MG/ML 500 ML Multipack Bottle IVPUSH STA (15:54)
[2024-01-22] MEDS: Acetaminophen 500 MG Tab PO ONE (16:47)
== END 2024-01-22 17:06 | disposition home or self-care (01) ==
LOC: MW.ED 14:15
DX: R07.9 Chest pain, unspecified (principal); Z75.8 Other problems related to medical facilities and other health care; Z79.899 Other long term (current) drug therapy
CPT/HCPCS: 0240U; 36415; 71275; 80053; 84484; 85025; 93005; 96360; 99285; A9270; J7030; Q9967; 93010; 99284

== ENCOUNTER 2025-03-22 21:21 | Emergency (ER) | payer MEDICAID | END 2025-03-23 02:23 | disposition home or self-care (01) | LOC: MW.ED 21:21 | DX: S62.002A Unspecified fracture of navicular [scaphoid] bone of left wrist, initial encounter for closed fracture (principal); X58.XXXA Exposure to other specified factors, initial encounter; Y93.89 Activity, other specified | CPT/HCPCS: 73100-26-LT; 73100-LT; 99283 ==